=== PATIENT | male | born 1975 | race Caucasian/White ===

== ENCOUNTER 2016-08-29 19:20 | Emergency (ER) | payer OTHER ==
[~2016-08-29] VITALS: Ht 179.1 cm; Wt 95.5 kg
[2016-08-29 19:34] VITALS: BP 136/97; PULSE 94; RESP 18; O2SAT 96
[2016-08-29] MEDS ORDERED: LORazepam 1 mg Tablet PO ONE (20:25)
[2016-08-29] MEDS ORDERED: _LORazepam 2 MG Tablet PO SCH (20:25)
--- NOTE | 2016-08-29 20:27 | ED.REPORT ---
HPI-General Illness Date of Service Aug 29, 2016 ED Provider: Charles Harman MD Patient is a 41 year old male with a history of EtOH abuse who presents to the ED seeking detox and referral to [facility]. Patient has been drinking for the past 20 years and has never sought detox prior to today. His last drink was 3 hours prior to arrival. He typically consumes a 1/5 of vodka per day. Withdrawal symptoms typically include hallucinations, tremors and agitation with reported seizure. Patient has had one previous admission for EtOH withdrawal. He denies any current withdrawal symptoms at this time. He does not feel that he has any withdrawal symptoms at this time. No other complaints at this time. No significant past medical history. Nursing Notes Stated Complaint: DETOX Chief Complaint: Substance Abuse Nursing Notes Reviewed: Yes Allergies: Coded Allergies: No Known Allergies (Verified Allergy, Unknown, 08/29/16) General Time Seen by MD: 20:20 Chief Complaint Other (Seeking detox) Hx Obtained From: Patient Arrived By: Walk-in Sudden in Onset?: No Onset Occurred: 9 - 12 hours ago Context of Onset: EtOH use Symptom Duration: Since onset Pertinent Negative: Pt denies other symptoms Recent Healthcare: No recent doctor visit, No recent hospitalization Past Medical History Past Medical History EtOH abuse Previous admission for withdrawal Past Surgical History None reported. Smoking History Unknown if Ever Smoker Social History Other Social History: Good social support, Local resident Ambulatory Status Independent Review of Systems Denies any withdrawal symptoms. Seeking detox. Complete sys rev & neg: except as marked. Physical Exam Vital Signs Vital Signs Date Time Temp Pulse Resp B/P Pulse Ox O2 Delivery O2 Flow Rate FiO2 08/29/16 19:34 37.3 94 18 136/97 96 Room Air Initial VS: Reviewed Neck: Supple, Non-tender, Full range of motion Extremities: Vascular intact, Neuro intact, No swelling, No tenderness Skin: Warm, Dry, No cyanosis General/Constitutional: Awake, Alert, No acute distress, Well appearing, Well developed, Not toxic appearing Appearance / Presentation: Negative: Intoxicated GENERAL: Does not appear to be in withdrawal Head / Eyes: Atraumatic, Normocephalic, PERRL ENT: Atraumatic, Airway patent, Mucous membranes moist Respiratory / Chest: Atraumatic, Breath sounds NL, Breath sounds = bilat, No respiratory distress Cardiovascular: Heart rate NL, Regular rhythm, Heart sounds NL, No gallop, No murmurs, No rubs Abdomen: Atraumatic, Soft, Non-tender, No distention Neurologic: Oriented X3, Speech NL, No motor deficits, No sensory deficits, CN II - XII intact, Reflexes equal bilat Movement Abnormality: Negative: Tremor Psychiatric: Not suicidal, Not homicidal, Judgment/insight NL, Thought content NL Interpretation & Diagnostics Lab Results Interpretation Lab Results Interpretation: EtOH - 139 Re-Eval/Medical Decision Med Decision/Clinical Course Patient is a 41 year old male with a history of EtOH abuse who presents to the ED seeking detox and referral to [facility]. Patient has been drinking for the past 20 years and has never sought detox prior to today. His last drink was 3 hours prior to arrival. He typically consumes a 1/5 of vodka per day. Withdrawal symptoms typically include hallucinations, tremors and agitation with reported seizure. Patient has had one previous admission for EtOH withdrawal. He denies any current withdrawal symptoms at this time. He does not feel that he has any withdrawal symptoms at this time. No other complaints at this time. No significant past medical history. Per the emergency Department the patient is afebrile stable vital signs and examination as above. He has no clinical signs of alcohol withdrawal such as tremors, hallucinations , agitation, tachycardia or fever. EtOH 139. Pt is cleared from a medical perspective. Patient is very motivated to stop drinking alcohol. Prescribed Ativan taper and he will be discharged to [facility] where he has a bed at 3 AM. He is not in any florid alcohol withdrawal at this time. I discussed with the patient that given the long duration of heavy alcohol abuse and previous severe alcohol withdrawal symptoms that Ativan taper may not be adequate to control his alcohol withdrawal. He is advised that he should request to be taken back to the emergency room should he develop tremors, visual hallucinations, racing heart or other signs of significant alcohol withdrawal while at [facility]. It is our hope, that initiating Ativan taper early will help him to avoid severe alcohol withdrawal symptoms and hospitalization. The patient is comfortable with this plan. Follow-up and return precautions were reviewed in detail with the patient who verbalized understanding and agreement with the plan. Time of Eval: 20:57 Patient Status: Condition improved Re-Evaluation/Progress Note: Patient is rechecked. He is informed of his results and diagnosis. All questions about the intended treatment plan are addressed. He understands and agrees with the plan to discharge with follow up. Counseled Regarding: Diagnosis, Lab results, Need for follow-up, When/why to return to ED Discharge & Departure Shift Change Sign-Out Patient Care Transferred: Yes Discussed Complaint(s): Yes Laboratory Evaluation: Lab evaluation discussed Response to Therapy: Improved Primary Impression: Alcohol abuse Additional Impression: Alcohol withdrawal Complication of substance-induced condition: uncomplicated Qualified Code: F10.230 - Alcohol dependence with withdrawal, uncomplicated Disposition: Home Discharge Condition All VS Reviewed: Yes Condition: Improved Patient Instructions: Abuse of Alcohol (ED) Additional Instructions: Thank you for seeking care at emergency room. Please go directly to [facility] at 3:00. Good luck with your treatment! Our primary goal today in the ED was to evaluate you for any life-threatening conditions. Your evaluation was reassuring. You will be discharged with a prescription for an Ativan taper. This should help with your withdrawal symptoms. Follow up with your primary care physician in the next week. You should return to the ED immediately if you develop severe withdrawal symptoms including hallucinations, uncontrollable tremors, lightheadedness, weakness, thoughts of harming yourself or others or any other concerning signs or symptoms. Thank you for letting us partake in your care today. Referrals: [facility] (PCP) [facility] Transferred to: Dr. Shanks [facility] Transferred at: 00:00 Scribe Attestation Portions of this note were transcribed by Yuly Pyle. I, Dr. Harman personally performed the history, physical exam and medical decision-making; I reviewed and confirmed the accuracy of the information in the transcribed note. Signed by: Emmett Rawls, 08/29/16 [id number]. Charles Harman MD Aug 29, 2016 20:27 YULY PYLE Aug 29, 2016 21:03
[2016-08-30 00:09] VITALS: BP 104/65; PULSE 91; RESP 16; O2SAT 100
[2016-08-30 02:23] VITALS: BP 104/65; PULSE 91; RESP 16; O2SAT 100
== END 2016-08-30 02:24 | disposition home or self-care (01) ==
LOC: SED 19:20
DX: F10.230 Alcohol dependence with withdrawal, uncomplicated (principal)